=== PATIENT | female | born 1950 ===

== ENCOUNTER 2022-02-14 10:45 | Inpatient (IN) | payer OTHER ==
[~2022-02-14] VITALS: Ht 149.9 cm; Wt 103.4 kg
[2022-02-14] MEDS ORDERED: SYNTHROID75 MCG PO (14:05)
[2022-02-14] MEDS ORDERED: VASOTEC20 M1 PO (14:05)
[2022-02-14] MEDS ORDERED: NORVASC5 MG PO (14:05)
[2022-02-14] MEDS ORDERED: HYDROCHLOROTH12.5 MG PO (14:06)
== END 2022-02-18 10:54 | disposition home or self-care (01) | DRG 741 ==
LOC: O/R 02-15 06:40 → SURG 02-15 10:45 → OB/GYN 02-15 22:09
PROVIDERS: ADMIT Specialist; ATTEND Specialist
PROC: 0UT70ZZ Resection of Bilateral Fallopian Tubes, Open Approach (ICD-10-PCS; 2022-02-15)
PROC: 0UT20ZZ Resection of Bilateral Ovaries, Open Approach (ICD-10-PCS; 2022-02-15)
PROC: 07BC0ZZ Excision of Pelvis Lymphatic, Open Approach (ICD-10-PCS; 2022-02-15)
PROC: 0U5B0ZZ Destruction of Endometrium, Open Approach (ICD-10-PCS; 2022-02-15)
PROC: 0DBU0ZZ Excision of Omentum, Open Approach (ICD-10-PCS; 2022-02-15)
PROC: 3E1M38Z Irrigation of Peritoneal Cavity using Irrigating Substance, Percutaneous Approach (ICD-10-PCS; 2022-02-15)
PROC: 0UT90ZZ Resection of Uterus, Open Approach (ICD-10-PCS; principal; 2022-02-15 13:30)
DX: C54.1 Malignant neoplasm of endometrium (principal); N83.291 Other ovarian cyst, right side; N83.292 Other ovarian cyst, left side; Z20.822 Contact with and (suspected) exposure to COVID-19